=== PATIENT | female | born 2005 | race African-American/Black ===

== ENCOUNTER 2023-08-08 20:50 | Emergency (ER) | payer BC, MEDICAID ==
[~2023-08-08] VITALS: Ht 165.1 cm; Wt 74.8 kg
[2023-08-08 21:51] VITALS: BP 133/63; TEMP 98.1; O2SAT 98
[2023-08-08] MEDS ORDERED: IBUP-1955 PO (22:57)
[2023-08-08] MEDS ORDERED: CYCL5TAB PO (22:57)
[2023-08-08] MEDS ORDERED: ACET-2605 PO (22:57)
== END 2023-08-08 23:20 | disposition home or self-care (01) ==
LOC: ER 20:53
DX: M54.89 Other dorsalgia (principal); R51.9 Headache, unspecified; V43.52XA Car driver injured in collision with other type car in traffic accident, initial encounter; Y93.89 Activity, other specified; Y92.481 Parking lot as the place of occurrence of the external cause; Y99.8 Other external cause status

== ENCOUNTER 2025-02-20 20:47 | Emergency (ER) | payer BC, OTHER ==
[~2025-02-20] VITALS: Ht 165.1 cm; Wt 75.7 kg
[~2025-02-20 20:47] MED LIST: ACET-2605 PO; CYCL5TAB PO; IBUP-1955 PO
[2025-02-21] MEDS ORDERED: ACETAMINOPHEN ES 500 MG TABLET ONE (00:51)
[2025-02-21] MEDS ORDERED: MORPHINE SULFATE INJ 4 MG/ML DISP.SYRIN ONE (00:51)
[2025-02-21] MEDS ORDERED: PIPERACI/TAZO 3.375GM/D5W 50ML PB IV ONE (00:51)
[2025-02-21] MEDS ORDERED: ONDANSETRON HCL/PF 4 MG/2 ML VIAL ONE (00:51)
[2025-02-21] MEDS: MORPHINE SULFATE INJ 2 MG/ML DISP.SYRIN IV ONE (01:14)
[2025-02-21] MEDS: IV NS 0.9% 1,000 ML BAG IV ONE (01:15)
[2025-02-21] MEDS: ONDANSETRON HCL/PF 4 MG/2 ML VIAL IVP ONE (01:15)
[2025-02-21 01:17] LABS: PLATELET COUNT (AUTO) 250 K/uL (150-450); RED BLOOD CELL COUNT(AUTO) 4.23 MIL/uL (4.0-5.2); RED CELL DISTRIBUTION WIDTH 15.0 % (11.5-15.0); WHITE BLOOD COUNT (AUTO) 14.7 K/uL (4.3-11.0)
[2025-02-21 01:32] LABS: CALCIUM, SERUM 9.1 mg/dL (8.5-10.1); CREATININE 1.0 mg/dL (0.6-1.3); SODIUM SERUM 137 mmol/L (136-145); UREA NITROGEN, BLOOD 12 mg/dL (7-18)
[2025-02-21 01:38] LABS: ASPARTATE AMINOTRANSFERASE 34 U/L (15-37); TOTAL PROTEIN, SERUM 8.5 g/dL (6.4-8.2)
[2025-02-21 01:40] LABS: INR 1.43 (0.91-1.10)
[2025-02-21 01:43] LABS: LACTIC ACID 2.1 mmol/L (0.4-2.0)
[2025-02-21 01:50] LABS: APPEARANCE,URINE CLEAR (CLEAR); BLOOD, URINE 1+ Ery/uL (NEGATIVE); LEUKOCYTE ESTERASE ,URINE 1+ (NEGATIVE); NITRITE, URINE NEGATIVE (NEGATIVE); UGLUCOSE NEGATIVE (NEGATIVE)
[2025-02-21 01:58] LABS: ADD URINE CULTURE YES
[2025-02-21 01:59] LABS: SQUAMOUS EPITHELIAL CELL,UR Few /HPF (None Seen)
[2025-02-21] MEDS: ACETAMINOPHEN ES 500 MG TABLET PO ONE (02:14)
[2025-02-21] MEDS: PIPERACILLIN /TAZOBACTAM 3.375 G in IV D5W 50 ML IV ONE (02:45)
[2025-02-21] MEDS ORDERED: AMOX-430 PO (03:04)
[2025-02-21] MEDS ORDERED: ONDA4TAB11 PO (03:04)
[2025-02-21] MEDS ORDERED: ACET-73 PO (03:04)
[2025-02-21] MEDS ORDERED: IBUP-1490 PO (03:04)
[2025-02-21 03:23] LABS: LYMPHOCYTES % (MANUAL) 16 % (16-48); MONOCYTES % (MANUAL) 12 % (0-11.0); NEUTROPHILS % (MANUAL) 72 (42-76)
[2025-02-21 03:24] LABS: PLATELET ESTIMATE ADEQUATE
[2025-02-21 03:38] LABS: PREGNANCY TEST URINE QUAL NEGATIVE (NEGATIVE)
[2025-02-21 04:29] VITALS: BP 97/74; TEMP 99.8; O2SAT 98
== END 2025-02-21 04:30 | disposition home or self-care (01) ==
LOC: ER 20:50
DX: N39.0 Urinary tract infection, site not specified (principal); R11.2 Nausea with vomiting, unspecified; R10.11 Right upper quadrant pain; Z91.048 Other nonmedicinal substance allergy status; Z20.822 Contact with and (suspected) exposure to COVID-19
CPT/HCPCS: 99285; 76705; 96365; 96375; 71045; 96361; 87426; 93005; 87804 ×2; 76856; 84145; 85027; 80048; 87077 ×2; 87040 ×2; 87086; 83605; 80076; 84703; 85007; 87186 ×2; 81001; 36415; 85730; J2270; J2405; J2543 ×2; J7060; J7030; J7050; A6403